=== PATIENT | male | born 1975 | race African-American/Black ===

== ENCOUNTER 2020-04-14 13:29 | Observation (INO) | payer OTHER ==
[~2020-04-14] VITALS: Ht 188 cm; Wt 141.1 kg
--- NOTE | 2020-04-14 13:29 | NUR ---
PT TO ROOM VIA EMS WITH MARIKA AT BEDSIDE
[2020-04-14] MEDS ORDERED: PEPCID20 MG PO (13:45)
[2020-04-14] MEDS ORDERED: PRAVASTATIN40 MG PO (13:45)
[2020-04-14] MEDS ORDERED: FLONASE AL50 MCG/ACT (13:46)
[2020-04-14] MEDS ORDERED: ZESTRIL10 M1 PO (13:47)
[2020-04-14] MEDS ORDERED: TRILEPTAL300 MG PO (13:48)
[2020-04-14] MEDS ORDERED: CLARITIN10 M2 PO (13:48)
[2020-04-14 14:10] LABS: HEMATOCRIT 41.7 % (39.0-50.0); HEMOGLOBIN 13.4 g/dl (14.0-18.0); MEAN CELL VOLUME 90.3 fL CALC (80.0-100.0); MEAN CORPUSCULAR HGB CONC 32.1 g/dL CAL (32.0-36.0); NEUT# 2.63 thou/uL (1.82-7.42); RED BLOOD COUNT 4.62 mill/uL (4.70-6.10); RED CELL DISTRI WIDTH 13.2 % (11.5-15.5)
[2020-04-14 14:24] LABS: ALBUMIN 3.8 g/dL (3.2-5.0); ALKALINE PHOSPHATASE 71 u/l (38-126); AMYLASE 70 u/l (30-110); ANION GAP 11 (6-22 (CALC)); BILIRUBIN, TOTAL 0.6 mg/dL (0.0-1.4); BUN 11 mg/dL (9-20); BUN/CREATININE RATIO 10 (12-20 (CALC)); CARBON DIOXIDE 24 mmol/l (22-30); CHLORIDE 104 mmol/l (95-108); CREATININE 1.1 mg/dL (0.7-1.3); GFR > 60 ML/MIN (>=60 (CALC)); GFR FOR AFR.AMER. > 60 ML/MIN (>=60 (CALC)); LIPASE 66 u/l (23-300); POTASSIUM 4.3 mmol/l (3.5-5.1); SGOT/AST 29 u/l (17-59); SODIUM 134 mmol/l (137-146); TOTAL PROTEIN 7.2 g/dL (6.3-8.2)
--- NOTE | 2020-04-14 14:30 | NUR ---
PATIENT PRESENTS WITH COMPLAINTS OF CHEST PAIN THIS MORNING RELIEVED BY NITRO AND ASA. PAIN WAS 10/10 NOW REPORTS 3/10. SKIN INTACT, NO SIGNS OF DISTRESS, VITAL SIGNS STABLE.
[2020-04-14 14:36] LABS: MYOGLOBIN 49 ng/mL (0 - 121)
[2020-04-14 14:55] LABS: TSH, 3RD GENERATION 0.86 uIU/mL (0.47 - 4.68)
--- NOTE | 2020-04-14 15:35 | NUR ---
PATIENT RESTING COMFORTABLY IN BED. NO SIGNS OF DISTRESSS. VITAL SIGNS STABLE. DENIES ANY CURRENT CHEST PAIN. SECURITY AT BEDSIDE. CALL LIGHT WITHIN REACH.
--- NOTE | 2020-04-14 16:40 | NUR ---
PATIENT BEING ADMITTED TO [facility] RM[facility][id number] FOR OBSERVATION. LOGISTICS SPECIALIST PLACED ON PT. VTIALS REMAIN STABLE. DENIES ANY PAIN. RESP EVEN AND UNLABORED. BED IN LOW POSITION.
--- NOTE | 2020-04-14 17:02 | NUR ---
PT ARRIVED TO UNIT VIA WHEELCHAIR WITH ER STAFF AND 2 GUARDS; AMBULATED TO BED WITH STEADY GAIT AND RESTING IN BED SEMI FOWLERS; RLE SHACKLED TO BED; GOOD CSM TO FEET. ALERT AND ORIENTED X 4. C/O VERY MILD LEFT SIDED CHEST PAIN 2/10 AND MILD CHRONIC LOWER BACK PAIN. RESPIRATIONS EVEN AND UNLABORED ON ROOM AIR. TELE ON. IV APPEARS HEALTHY AND FLUSHES. ORIENTED TO ROOM AND CALL LIGHT SYSTEM. PLAN OF CARE DISCUSSED. PT ENCOURAGED TO VERBALIZE CONCERNS. STATES UNDERSTANDING. SAFETY MEASURES IN PLACE. CALL LIGHT WITHIN REACH.
--- NOTE | 2020-04-14 17:05 | NUR ---
Admission Note Report Given to: SAAD SHIN Transported by: X Wheelchair Stretcher Transported with: X Nurse Transporter X Patent IV O2 X Assistant Community Manager Location: ICU X MS2
[2020-04-14 17:10] VITALS: BP 141/98
--- NOTE | 2020-04-14 18:05 | NUR ---
DINNER TRAYS DELIVERED TO PT AND GUARDS.
[2020-04-14 19:00] VITALS: BP 124/74
--- NOTE | 2020-04-14 19:11 | NUR ---
CRITICAL TROPONIN RESULT CALLED FROM LAB; 0.150. PT DENIES CP AT THIS TIME; ONLY C/O CHRONIC BACK PAIN. DENIES SOB OR NAUSEA. RT AT BEDSIDE FOR EKG.
--- NOTE | 2020-04-14 19:22 | NUR ---
DR. RICO NOTIFIED OF LAB, EKG, AND CLINICAL CONDITION. NEW ORDERS TO CONTINUE TO CLOSELY MONITOR AND NOFITY OF ANY CHEST PAIN OR CHANGES IN TROPONINS. REPORT GIVEN TO KIP TIERNEY.
--- NOTE | 2020-04-14 20:00 | NUR ---
2000-Pt sitting up in bed, alert and oriented. No s/s of distress. Asessment completed. Comlaints of back pain, medicated. Bed low and locked. Call light and phone within reach. Pt stable. Will continue to monitor.
--- NOTE | 2020-04-14 23:53 | NUR ---
2353-Pt lying in bed. Eyes closed, guards close by monitoring pt. Sleeping pill provided at pt request. No s/s of distress. Bed low and locked. Call light and phone within reach. Pt stable, will continue to monitor.
[2020-04-15 00:12] VITALS: BP 119/79
--- NOTE | 2020-04-15 01:25 | NUR ---
0125-E.F. from lab called to give 0000 troponin level which is 0.334. Dr. Jovel notified. I will wait for ten minutes and will call him back with his suggestion.
--- NOTE | 2020-04-15 01:46 | NUR ---
0146-Called Dr. Jovel and provided him with update pt lab values and status. Current BP 115/80, HR 73, 97.3 Temp, 95% O2 Sat, 16 breaths per minute. Pt denies chest pain at this time. Dr. Jovel aware of pt troponin level of 0.334, he said to monitor pt and update him on 0600 troponin level. Pt is currently stable. No s/s of distress. Bed low and locked. Call light and phone within reach. Correction guards at bedside, will continue to monitor pt closely.
--- NOTE | 2020-04-15 03:30 | NUR ---
0330-Pt lying in bed, asleep. No s/s of distress. Bed low and locked. Call light and phone within reach. Guards at bedside. Pt stable at this time, will continue to monitor.
[2020-04-15 04:26] VITALS: BP 138/72
[2020-04-15 06:13] LABS: CHOLESTEROL HDL RATIO 5.7 (<4.4 (CALC))
--- NOTE | 2020-04-15 06:25 | NUR ---
0625-Critical troponin level received from in lab of 0.281. Called Dr Jovel and his response is that it is trending down and he will monitor.
[2020-04-15 07:59] VITALS: BP 129/87
--- NOTE | 2020-04-15 07:59 | NUR ---
RECIEVED REPORT FROM KIP LOPEZ. PT SITTING IN HIGH FOWLERS POTIION UPON ENTERING ROOM. INTRODUCED SELF TO PT AND DISCUSSED POC./ ASSESSMENT NAD VITALS COMPLETED. RESPIRTATIONS ARE EVEN AND UNLABORED. HEART RHYTHM IS NROMAL WITH TELE IN PLACE. RADIAL AND PEDAL PULSES ARE STRONG WITH NORMAL CAPILLARY REIFLL. #20 IN RAC FLUSHED, SITE APPEARS HEALTHY AND PATENT. PT COMPLAINS OF 8/10 BACK PAIN, PERCOCET TO BE ADMINISTERED. PT DENIES ANY OTHER PAIN SOR DISCOMFORTS.PT IS A/OX3 WITH MARIKA AT BEDSIDE. ALL SAFETY PRECAUTION SARE IN PLACE WITH CALL LIGHT IN REACH.W ILL COTNINUE TO MONITOR
--- NOTE | 2020-04-15 08:35 | NUR ---
DR BONILLA AT [facility] DISCUSSING POC
--- NOTE | 2020-04-15 11:22 | NUR ---
REASSESSMENT OF PAIN AT THIS TIME. RESULTING IN 11/04. RESPIRATIONS AREE EVEN AND UNLABORED. AWAITING TRANSFER TO [facility] AT THIS TIME. ALL SAFETY PRECAUTIONS ARE IN PLACE WIHT CALL LIGHT IN REACH. ZO CARDONA TO MONITOR
[2020-04-15 11:41] VITALS: BP 110/65
--- NOTE | 2020-04-15 12:45 | NUR ---
PT SIITING IN HIGH FOWLERS POSITION WATCHING TV AND TALKING WITH GAURDS. RESPIRATIONS ARE EVEN AND UNLABROED WITH NO SIGNS OF DITRESS. PT DENEIS ANY PAIN OR DISOCMFORTS AT THIS TIME. FRESH ICE WATER GIVEN TO PT. PT TO BE TRANSFER TO [facility], WAITING FOR ROOM. ALL SAFETY PRECAUTIONS ARE IN PLACE WIHT CALL LIGHT IN REACH.WILL CONTINUE TO MONITOR
--- NOTE | 2020-04-15 13:32 | NUR ---
SPOKE WITH KIP HOPE FROM [facility] IN REGARDS TO PT
--- NOTE | 2020-04-15 13:45 | NUR ---
DISCHARGE INSTRUCTIONS AND NEW MEDICTAIONS LEVAQUIN AND TAMIFLU EDUCTAED TO PT . PT VERBALIZED UNDERSTANDING.IV REMOVED WITH CATAHTER STILL IN PLACE. ALL SAFETY PRECAUTIONS ARE IN PLACE WITH CALL LIGHT IN [facility].WILL CHAPITONUE TO MONITOR
--- NOTE | 2020-04-15 16:23 | NUR ---
Discharge instructions given. Patient verbalizes understanding of same. Discharged in stable condition via Medical Transport to *Other with staff. All belongings sent with pt. PT TRANSPORTED TO [facility] [place] [place] BY [facility]ICAL TRANSPORTATION IN STABLE CONDITION VIA STRETCHER. ALL BELONGIINGS LEFT WITH PT
--- NOTE | 2020-04-15 16:59 | NUR ---
REPORT CALLED TO KIP STERN AT [facility]
== END 2020-04-15 16:23 | disposition short-term general hospital (02) | DRG 282 ==
LOC: ED 13:29 → ED-I 15:15 → ED 15:32 → MS2 15:33
PROVIDERS: Emergency Medicine; Nurse Practitioner; ADMIT Internal Medicine; ATTEND Internal Medicine
DX: I21.4 Non-ST elevation (NSTEMI) myocardial infarction (principal); I10 Essential (primary) hypertension; E78.5 Hyperlipidemia, unspecified; E03.9 Hypothyroidism, unspecified; K21.9 Gastro-esophageal reflux disease without esophagitis; E66.9 Obesity, unspecified; Z87.891 Personal history of nicotine dependence; Z20.828 Contact with and (suspected) exposure to other viral communicable diseases
CPT/HCPCS: G0378; J1650